=== PATIENT | female | born 1935 | race Caucasian/White ===

== ENCOUNTER 2016-06-18 22:33 | Emergency (ER) | payer BC, MEDICARE ==
[~2016-06-18] VITALS: Ht 165.1 cm; Wt 95.3 kg
[~2016-06-18 22:33] MED LIST: ATOR10TA60 PO; GABA600T2 PO; LEVO112T4 PO; LOSA100T6 PO; MELO-150 PO; METF500T4 PO; OXYB5TAB7 PO; TRIA1TAB3 PO
[2016-06-18] MEDS ORDERED: COCAINE 4% TOPICAL SOLUTION TP ONE (22:55)
[2016-06-18] MEDS ORDERED: AMOX1TAB58 PO (23:49)
[2016-06-18] MEDS ORDERED: HYDR-971 PO (23:49)
--- NOTE | 2016-06-18 23:50 | PHYS DOC ---
Past Medical History Past Medical History: Arthritis, Hypertension, Hypothyroid Past Surgical History: Cholecystectomy Additional Past Surgical Histo: breast biopsy, hernia repair Alcohol Use: None Drug Use: None Adult General Chief Complaint Chief Complaint: NOSEBLEED HPI HPI Patient is a 80 year old female who presents with complaint of nosebleed. Patient states her symptoms started approximately 2 hours prior to arrival. The patient started having some bleeding from the left nasal passage. Patient states that it was "a lot of blood." Patient denies any lightheadedness currently but states that she is having blood running down the back or throat. Patient is currently on baby aspirin but denies taking any other blood thinners. Patient denies any injuries to the nose prior to onset of bleeding. Patient has been holding pressure on her nose since onset but has not had any success in stopping the nosebleed. Review of Systems Review of Systems Constitutional: Denies fever or chills [] Eyes: Denies change in visual acuity, redness, or eye pain [] HENT: Epistaxis [] Respiratory: Denies cough or shortness of breath [] Cardiovascular: Denies chest pain or edema [] GI: Denies abdominal pain, nausea, vomiting, bloody stools or diarrhea [] : Denies dysuria or hematuria [] Musculoskeletal: Denies back pain or joint pain [] Integument: Denies rash or skin lesions [] Neurologic: Denies headache, focal weakness or sensory changes [] Current Medications Current Medications Current Medications Medications (Trade) Dose Ordered Sig/Preston Start Time Stop Time Status Last Admin Dose Admin Cocaine HCl 4 ml STK-MED ONCE 06/18/16 22:55 06/18/16 22:56 DC Allergies Allergies Allergies Coded Allergies Type Severity Reaction Last Updated Verified Iodinated Contrast Media - Oral and Allergy Unknown hives 10/29/14 No Physical Exam Physical Exam Constitutional: Alert, afebrile, active bleeding from nose, appears anxious. [] HENT: Normocephalic, atraumatic, bilateral external ears normal, visualized clot coming from nasopharynx protruding towards posterior oropharynx, no oral exudates, persistent oozing from left near with large amount of clot present, unable to visualize source of bleeding. [] Eyes: PERRLA, EOMI, conjunctiva normal, no discharge. [] Neck: Normal range of motion, no tenderness, supple, no stridor. [] Cardiovascular:Heart rate regular rhythm, no murmur [] Lungs & Thorax: Bilateral breath sounds clear to auscultation [] Abdomen: Bowel sounds normal, soft, no tenderness, no masses, no pulsatile masses. [] Skin: Warm, dry, no erythema, no rash. [] Extremities: No tenderness, no cyanosis, no clubbing, ROM intact, no edema. [] Neurologic: Alert and oriented X 3, normal motor function, normal sensory function, no focal deficits noted. [] Current Patient Data Vital Signs Vital Signs Date Time Temp Pulse Resp B/P Pulse Ox O2 Delivery O2 Flow Rate FiO2 06/18/16 22:35 98.2 81 20 157/67 95 Room Air 98.2 EKG EKG Not performed [] Radiology/Procedures Radiology/Procedures Not performed [] Course & Med Decision Making Course & Med Decision Making Pertinent Labs and Imaging studies reviewed. (See chart for details) Patient displayed severe bleeding which required placement of nasal packing for A knot. Patient had successful placement of a nasal pack as outlined in the procedure note. On reevaluation, the patient is in no acute distress and patient does not have any further active bleeding in her posterior pharynx. The patient will be referred to Dr. Kay of ENT for follow-up in 3-7 days. Patient will be treated with Augmentin for prophylaxis of sinus infection and hydrocodone for breakthrough pain. Advised return to emergency department for any worsening symptoms. Patient voiced understanding and in agreement with treatment plan. Dragon Disclaimer Dragon Disclaimer This electronic medical record was generated, in whole or in part, using a voice recognition dictation system. Departure Departure Impression: Primary Impression: Epistaxis Disposition: 01 HOME, SELF-CARE Condition: IMPROVED Referrals: ELDER PEARCE MD (PCP) Patient Instructions: Nosebleed Additional Instructions: You are being referred to Dr. Kay of ENT. It is recommended that you call her clinic at tomorrow to schedule a follow-up appointment. Be sure to let them know that you were seen here at [facility] and that the staff instructed you to call their office for follow-up. This may take place within the next 3-7 days unless instructed different by their office. You' ll be started on Augmentin to help prevent development of sinus infection while the nasal pack is in place. Return to the emergency department for any worsening symptoms. Scripts Hydrocodone/Apap 5-325 ([place] 5-325 Tablet)1 Each Tablet1 Tab PO Q4-6HRS PRN PAIN #20 TAB Ref 0 Prov:PRATIBHA SPAULDING MD 06/18/16 Amoxicillin/Potassium Clav (Augmentin 500-125 Tablet)1 Each Tablet1 Tab PO BID # 14 TAB Prov:PRATIBHA SPAULDING MD 06/18/16 PRATIBHA SPAULDING MD Jun 18, 2016 23:49
[2016-06-18 23:55] VITALS: BP 137/63
[2016-06-19] MEDS ORDERED: COCAINE 4% TOPICAL SOLUTION TP ONE (01:00)
[2016-07-02] MEDS ORDERED: ALEN70TA5 PO (13:01)
[2016-07-02] MEDS ORDERED: DULO30CA43 PO (13:01)
== END 2016-06-19 | disposition home or self-care (01) ==
LOC: ER 22:33
DX: R04.0 Epistaxis (principal); E03.9 Hypothyroidism, unspecified; I10 Essential (primary) hypertension; M19.90 Unspecified osteoarthritis, unspecified site; Z90.49 Acquired absence of other specified parts of digestive tract; Z91.041 Radiographic dye allergy status
CPT/HCPCS: 30901; 99283; 99284-25

== ENCOUNTER → 2016-07-02 | Outpatient (CLI) | payer MEDICARE ==
[2016-06-18 23:55] VITALS: BP 137/63
[~2016-07-02] MED LIST changes: +ALEN70TA5 PO; +AMOX1TAB58 PO; +DULO30CA43 PO; +HYDR-971 PO
[2016-07-02 13:58] LABS: BASO # 0.1 x10^3/uL (0.0-0.2); BASO % 1 % (0-3); EOS % 3 % (0-3); HEMATOCRIT 37.2 % (36.0-47.0); HEMOGLOBIN 12.4 g/dL (12.0-15.5); LYMPH % 28 % (24-48); MEAN CORPUSCULAR HEMOGLOBIN 32 pg (25-35); MEAN CORPUSCULAR HGB CONC 33 g/dL (31-37); MEAN CORPUSCULAR VOLUME 96 fL (79-100); MONO % 11 % (0-9); NEUT % 57 % (31-73); PLATELET COUNT 333 x10^3/uL (140-400); RED BLOOD COUNT 3.89 x10^6/uL (3.50-5.40); RED CELL DISTRIBUTION WIDTH 13.6 % (11.5-14.5); WHITE BLOOD COUNT 7.1 x10^3/uL (4.0-11.0)
--- NOTE | 2016-07-02 13:58 | EKG ---
[facility] [address] [place] [address] Test Date: 2016-07-02 Test Time: 14:05:17 Pat Name: SONU GARVIN Department: Room: Gender: F Car Hostler: : 1935 Requested By: PATRICA MONTELONGO Order Number: [id number] Reading MD: Harlan Saunders Measurements Intervals Dubois Rate: 59 P: 47 NM: 218 QRS: -16 QRSD: 86 T: 8 QT: 444 QTc: 444 Interpretive Statements SINUS RHYTHM ATRIAL PREMATURE COMPLEX(ES) LEFTWARD AXIS OTHERWISE NORMAL ECG RI6.01 No previous ECG available for comparison Electronically Signed On 07-03-2016 13:57:13 MILIEU COORDINATOR by Harlan Saunders
[2016-07-02 14:21] LABS: ALBUMIN 3.4 g/dL (3.4-5.0); CALCIUM 9.1 mg/dL (8.5-10.1); CREATININE 0.9 mg/dL (0.6-1.0); GFR 60.6; POTASSIUM 4.1 mmol/L (3.5-5.1); TOTAL BILIRUBIN 0.3 mg/dL (0.2-1.0); TOTAL PROTEIN 6.7 g/dL (6.4-8.2)
== END | disposition home or self-care (01) ==
LOC: SURGPAT 12:38
PROVIDERS: ATTEND Neurological Surgery
DX: Z01.818 Encounter for other preprocedural examination (principal); I10 Essential (primary) hypertension; M54.16 Radiculopathy, lumbar region; M48.06 Spinal stenosis, lumbar region
CPT/HCPCS: 36415; 80053; 83036; 85027; 85610; 85730; 87641; 93005

== ENCOUNTER 2016-07-08 07:04 | Observation (INO) | payer MEDICARE ==
[~2016-07-08] VITALS: Ht 162.6 cm; Wt 93.0 kg
[2016-07-08] VITALS (11 sets, daily range): BP systolic 100–130; BP diastolic 54–70
[~2016-07-08 07:04] MED LIST changes: +BACITRACIN 50,000 UNIT in IV NORMAL SALINE 1000ML BAG 1,000 ML IRR ONE; +FENTANYL PF 100 MCG/2 ML VIAL. IV PRN; +HYDROMORPHONE 2 MG/ML VIAL. IV PRN; +IV RINGERS,LACTATED 1000ML 1,000 ML IV SCH; +LIDOCAINE 1% 1 ML SYRINGE. ID PRN; +MORPHINE SULFATE 2 MG/ML DISP.SYRIN. IV PRN; +ONDANSETRON PF 4 MG/2 ML VIAL. IV PRN; +PROCHLORPERAZINE 10 MG/2 ML VIAL. IV PRN
[2016-07-08] MEDS ORDERED: LIDOCAINE 1%/EPI 1:100,000 20 ML VIAL. ONE (07:27)
[2016-07-08] MEDS ORDERED: BUPIVACAINE 0.5% 50 ML VIAL. ONE (07:27)
[2016-07-08] MEDS ORDERED: THROMBIN 20,000 UNIT SPRAY.SYRN KIT TP ONE (07:27)
[2016-07-08] MEDS ORDERED: GELATIN SPONGE SIZE 100. ONE (07:27)
[2016-07-08] MEDS ORDERED: REMIFENTANIL 2 MG VIAL. IV ONE (07:56)
[2016-07-08] MEDS ORDERED: FENTANYL PF 100 MCG/2 ML VIAL. ONE (07:56)
[2016-07-08] MEDS ORDERED: GLYCOPYRROLATE 1 MG/5 ML VIAL. ONE (07:57)
[2016-07-08] MEDS ORDERED: CEFAZOLIN 1GM IVPB FOR OMNI 50 ML IV PRN (08:00)
[2016-07-08] MEDS ORDERED: PROPOFOL 20 ML IV ONE (08:01)
[2016-07-08] MEDS ORDERED: ONDANSETRON PF 4 MG/2 ML VIAL. ONE (08:04)
[2016-07-08] MEDS ORDERED: LIDOCAINE 2% 100 MG/5 ML DISP.SYRIN. ONE (08:04)
[2016-07-08] MEDS ORDERED: DEXAMETHASONE SOD PHOS 20 MG/5 ML VIAL. ONE (08:05)
[2016-07-08] MEDS ORDERED: PROPOFOL 50 ML IV ONE ×2 (08:06→09:28)
[2016-07-08] MEDS ORDERED: ROCURONIUM 50 MG/5 ML VIAL. ONE (08:08)
[2016-07-08] MEDS ORDERED: FAMOTIDINE 20 MG/2 ML VIAL ONE (08:09)
[2016-07-08] MEDS ORDERED: MIDAZOLAM HCL 2 MG/2 ML VIAL. ONE (08:30)
--- NOTE | 2016-07-08 11:09 | PDOC ---
BRIEF OPERATIVE NOTE Date: Jul 08, 2016 Pre-Op Diagnosis lumbar stenosis, lumbar spondylosis, lumbar radiculopathy Post-Op Diagnosis same Procedure Performed bilateral laminectomy L4-5 Surgeon Nba Carbon Brush Maker none Anesthesia Type: General Blood Loss 25mL Specimens Obtained decompression Findings prominent stenosis largely related to underlying ligamentous hypertrophy Complications none apparent Additional Remarks neuromonitoring improved compared to baseline upon completion of procedure PATRICA MONTELONGO MD Jul 08, 2016 11:09
[2016-07-08] MEDS ORDERED: DIPHENHYDRAMINE HCL 25 MG CAPSULE PO PRN (11:15)
[2016-07-08] MEDS ORDERED: ZOLPIDEM 5 MG TABLET. PO PRN (11:15)
[2016-07-08] MEDS ORDERED: OXYCODONE/APAP 5/325 TABLET. PO PRN (11:15)
[2016-07-08] MEDS ORDERED: 0.9 % SODIUM CHLORIDE 10 ML DISP.SYRIN. IV PRN (11:15)
[2016-07-08] MEDS ORDERED: CALCIUM CARBONATE 500 MG TAB.CHEW PO PRN (11:15)
[2016-07-08] MEDS ORDERED: MAG HYDROX/ALUMINUM HYD/SIMETH 30 ML ORAL.SUSP PO PRN (11:15)
[2016-07-08] MEDS ORDERED: ONDANSETRON PF 4 MG/2 ML VIAL. IV PRN (11:15)
[2016-07-08] MEDS ORDERED: ACETAMINOPHEN 325 MG TABLET. PO PRN (11:15)
[2016-07-08] MEDS ORDERED: DIPHENHYDRAMINE 50 MG/ML VIAL IV PRN (11:15)
[2016-07-08] MEDS ORDERED: NALOXONE 0.4 MG/ML VIAL. IV PRN (11:15)
[2016-07-08] MEDS: FENTANYL PF 100 MCG/2 ML VIAL. IV PRN ×2 (11:21→11:28)
[2016-07-08] MEDS ORDERED: FENTANYL PF 100 MCG/2 ML VIAL. IV PRN ×2 (11:45)
[2016-07-08] MEDS: GABAPENTIN 300 MG CAPSULE. PO SCH ×2 (13:13→20:53)
[2016-07-08] MEDS: METFORMIN 500 MG TABLET. PO SCH (13:13)
[2016-07-08] MEDS: METHOCARBAMOL 750 MG TABLET PO SCH ×2 (13:14→20:53)
--- NOTE | 2016-07-08 15:40 | OP ---
DATE OF SURGERY: 07/08/2016 SURGEON: Dr. Chris Montelongo. UNDERLINER: None. PREOPERATIVE DIAGNOSES: Lumbar spondylosis with lumbar stenosis and lumbar radiculopathy. POSTOPERATIVE DIAGNOSES: Lumbar spondylosis with lumbar stenosis and lumbar radiculopathy. PROCEDURE: Bilateral laminectomy of lumbar 4-5 with intraoperative neuro-monitoring and intraoperative use of microscope. ANESTHESIA: General. COMPLICATIONS: None intra-procedurally. INDICATIONS FOR THE PROCEDURE: The patient is a 80-year-old female with significant lower extremity pain localized with prominent stenosis at lumbar 4-5. She has been refractory to nonsurgical treatments. Please refer to the patient chart for additional details. DESCRIPTION OF PROCEDURE: After informed consent was obtained, the patient was brought into the operating room. She was placed under general anesthesia, was placed in the prone position on the Noé frame. All pressure points were checked and padded appropriately. Neuro monitoring was instituted and baseline potentials were obtained. The lumbar region was prepped and draped in the usual sterile fashion. Fluoroscopy was utilized to localize an appropriate incision location, and a vertical incision centered over the region of lumbar 4-5 was made with a 10-blade scalpel. Monopolar electrocautery was utilized to dissect the avascular midline to the spinous processes of lumbar 4-5 and bilaterally across the lamina at this location. Level was again verified with fluoroscopy prior to the initiation of decompression. A bilateral laminectomy was performed over the inferior aspect of lumbar 4 and slightly in the superior aspect of lumbar 5 over the region with most prominent stenosis at this location. This was performed with a Leksell as well as a pneumatic drill. A Kerrison rongeur was also utilized to remove the bony material. The underlying ligament was gently dissected free from the thecal sac with a Harsha and nerve hook and removed with a pituitary rongeur and a Kerrison rongeur. Prominent stenosis was noted over this region, particularly centrally and in the bilateral lateral recesses largely due to degenerative changes such as ligamentous hypertrophy. Once the bilateral laminectomy was performed, decompression was verified with direct visualization as well as gentle palpation with a Tioga and a Lopez ball. Neuro monitoring was reportedly improved compared to baseline upon completion of the decompression as well. Upon completion of this, pristine hemostasis was achieved with FloSeal, cottonoids, irrigation, and some use of bipolar electrocautery. The wound was generously irrigated with antibiotic irrigation prior to final closure. Muscles and fascia were then reapproximated with 0 Vicryl in a simple interrupted fashion. Subcutaneous tissues were reapproximated with 2-0 Vicryl in interrupted inverted fashion, and the skin was reapproximated with 4-0 Vicryl in a running subcuticular fashion. Mastisol and Steri-Strips were applied, and the wound was dressed with Telfa and Tegaderm. At the end of procedure, all needle and sponge counts were correct x 2. The patient was extubated in the operating room and taken to recovery in stable condition. There were no intra-procedural complications apparent. CHRIS MONTELONGO MD DR: EL/herman JOB#: [id number] / [id number]
[2016-07-08] MEDS: CALCIUM CARB/VIT D3 500/200 TABLET PO SCH (17:43)
[2016-07-08] MEDS: FERROUS SULFATE 325 MG TABLET PO SCH (17:43)
[2016-07-08] MEDS: SENNOSIDES/DOCUSATE 8.6/50MG TABLET. PO SCH (20:53)
[2016-07-08] MEDS: DULOXETINE HCL 30 MG CAPSULE.DR. PO SCH (20:53)
[2016-07-08] MEDS: DOCUSATE SODIUM 100 MG CAPSULE PO SCH (20:53)
[2016-07-08] MEDS: NEOMY/BACITR/POLYMYXIN OINT PACKET. TP PRN (20:54)
[2016-07-08] MEDS ORDERED: ATORVASTATIN CALCIUM 10 MG TABLET. PO SCH (21:00)
[2016-07-08] MEDS: OXYCODONE/APAP 5/325 TABLET. PO PRN (22:47)
[2016-07-08] MEDS: OXYBUTYNIN CHLORIDE 5 MG TABLET PO SCH (22:55)
[2016-07-09 02:11] VITALS: BP 95/47
[2016-07-09] MEDS: OXYCODONE/APAP 5/325 TABLET. PO PRN ×2 (05:33→10:20)
[2016-07-09 06:32] VITALS: BP 121/56
[2016-07-09] MEDS ORDERED: LEVOTHYROXINE 112 MCG TABLET PO SCH (07:00)
[2016-07-09] MEDS ORDERED: METFORMIN 500 MG TABLET. PO SCH (07:30)
[2016-07-09] MEDS: METFORMIN 500 MG TABLET. PO SCH (07:44)
[2016-07-09] MEDS: GABAPENTIN 300 MG CAPSULE. PO SCH (07:44)
[2016-07-09] MEDS: METHOCARBAMOL 750 MG TABLET PO SCH (07:44)
[2016-07-09] MEDS: FERROUS SULFATE 325 MG TABLET PO SCH (07:44)
[2016-07-09] MEDS: CALCIUM CARB/VIT D3 500/200 TABLET PO SCH (07:44)
[2016-07-09] MEDS: OXYBUTYNIN CHLORIDE 5 MG TABLET PO SCH (07:44)
[2016-07-09] MEDS: SENNOSIDES/DOCUSATE 8.6/50MG TABLET. PO SCH (07:44)
[2016-07-09] MEDS: DOCUSATE SODIUM 100 MG CAPSULE PO SCH (07:44)
[2016-07-09] MEDS: DULOXETINE HCL 30 MG CAPSULE.DR. PO SCH (07:45)
[2016-07-09] MEDS: NEOMY/BACITR/POLYMYXIN OINT PACKET. TP PRN (07:50)
[2016-07-09 07:51] VITALS: BP 124/54
[2016-07-09] MEDS ORDERED: TRIAMTERENE/HCTZ 37.5/25MG TABLET. PO SCH (09:00)
[2016-07-09] MEDS ORDERED: MELOXICAM 7.5 MG TABLET PO SCH (09:00)
[2016-07-09] MEDS ORDERED: MULTIVITAMIN with MINERAL TABLET. PO SCH (09:00)
[2016-07-09] MEDS ORDERED: LOSARTAN POTASSIUM 50 MG TABLET. PO SCH (09:00)
--- NOTE | 2016-07-09 09:02 | PDOC ---
SUBJECTIVE Subjective Reports resolution of leg pain. Incisional pain controlled. Has been ambulating without significant problem. OBJECTIVE Vital Signs Vital Signs Date Time Temp Pulse Resp B/P Pulse Ox O2 Delivery O2 Flow Rate FiO2 07/09/16 08:03 52 124/54 07/09/16 08:00 Room Air 07/09/16 07:51 52 16 124/54 Room Air 07/09/16 06:36 20 97 Room Air 07/09/16 06:32 97.7 54 18 121/56 93 Room Air 97.7 07/09/16 05:33 20 07/09/16 02:11 98.1 61 20 95/47 93 Room Air 98.1 07/08/16 22:51 98.3 62 18 114/57 95 Room Air 98.3 07/08/16 22:47 20 Room Air 07/08/16 19:00 58 20 94 Room Air 07/08/16 17:54 97.6 56 16 118/70 95 Room Air 97.6 07/08/16 16:00 98.0 54 20 124/63 95 Room Air 98.0 07/08/16 15:00 97.2 57 18 117/57 97 Nasal Cannula 2.0 97.2 07/08/16 14:30 18 122/63 07/08/16 14:00 97.5 60 119/60 97 Nasal Cannula 2.0 97.5 07/08/16 13:30 55 20 126/54 07/08/16 13:00 Room Air 2.0 07/08/16 13:00 97.3 57 18 125/57 98 Nasal Cannula 2.0 97.3 07/08/16 12:45 130/55 07/08/16 12:30 100/57 07/08/16 12:15 97.5 56 18 118/64 94 Nasal Cannula 2.0 97.5 07/08/16 11:48 64 18 121/58 97 Room Air 07/08/16 11:33 66 18 128/63 98 Nasal Cannula 2 07/08/16 11:28 93 Room Air 07/08/16 11:21 99 Room Air 07/08/16 11:18 71 16 120/57 93 Room Air 07/08/16 11:03 98.0 84 14 128/47 99 Simple Mask 10 98.0 I & O Intake and Output 07/09/16 07:00 Intake Total 2680 ml Output Total 2250 ml Balance 430 ml Intake Oral 2030 ml IV Total 650 ml Output Urine Total 2250 ml # Voids 2 PHYSICAL EXAM Physical Exam AAOX4, NAD, BOONE 5/5, sensation intact LT, dressing with small ss stain, flat and dry ASSESSMENT/PLAN Assessment/Plan POD 1 lumbar laminectomy -overall, appears to be recovering well -PT to see -standard post-op restrictions -d/c home today -f/u with NS 2 weeks [phone] Problems: COMMENT Lab Laboratory Tests Test 07/08/16 11:17 07/08/16 16:35 07/09/16 06:26 Glucose (Fingerstick) 103mg/dL (70-99) 137mg/dL (70-99) 91mg/dL (70-99) PATRICA MONTELONGO MD Jul 09, 2016 09:02
[2016-07-09] MEDS ORDERED: METH750T2 PO (09:09)
[2016-07-09] MEDS ORDERED: SENN1TAB99 PO (09:10)
[2016-07-09] MEDS ORDERED: OXYC-323 PO (09:11)
[2016-07-09 11:12] VITALS: BP 119/60
--- NOTE | 2016-07-09 15:09 | PATHOLOGY ---
PATHOLOGY REPORT * * * * * * * * FINAL DIAGNOSIS: Segments of fibrocartilaginous, fibroadipose, and skeletal muscle tissue and bone, lumbar decompression: - Degenerative changes of fibrocartilaginous tissue. COMMENT: There is no evidence of an acute inflammatory process or malignancy. (JPM:csd; d/t: 07/09/2016) REPORT ELECTRONICALLY SIGNED BY: Wilmar David M.D. DATE/TIME: 07/09/2016 15:08 * * * * * * * * GROSS PATHOLOGY: Received in formalin labeled "Ashlie Mosher, lumbar decompression" are multiple segments of finnegan, rubbery, and gritty tissue admixed with bone. The specimen measures 5.2 x 4.8 x 1.4 cm in aggregate dimensions. The tissue is submitted representatively in cassette A1, following decalcification. (CAA; 07/08/2016) INITIAL CPT CODE(S): A; 48148, 74439 Professional services performed [place] [facility] [place] [address] Technical services performed by [facility] at [address] [place] [address]. SPECIMEN(S) RECEIVED: A.Lumbar decompression CLINICAL HISTORY: Lumbar stenosis, radiculopathy PATIENT: ASHLIE MOSHER O /AGE: 3 1935 (Age: 80) PATIENT #: [id number] ALT CASE #: SPECIMEN COLLECTION DATE: 07/08/2016 SPECIMEN RECEIVED DATE: 07/08/2016 [facility] - [address] [place] [address] - PHONE: [phone] * * * END OF REPORT * * *
[2016-07-15] MEDS ORDERED: NON FORMULARY ITEM (Alendronate Sodium 70 MG) PO SCH (09:00)
== END 2016-07-09 11:33 | disposition home or self-care (01) ==
LOC: SURG 07:04 → 4 SOUTHEST 11:19
PROVIDERS: ADMIT Neurological Surgery; ATTEND Neurological Surgery
DX: M47.26 Other spondylosis with radiculopathy, lumbar region (principal); M48.06 Spinal stenosis, lumbar region
CPT/HCPCS: 63030; 76000; 82947; 97161; 97165; 97535; G0378; G0379; G8978; G8979; G8980; J0690; J1100; J2250; J2704; J3010; J3490; J7030; S0028; 88304; 88311; J0780; J2405

== ENCOUNTER → 2017-04-10 | Outpatient (CLI) | payer BC ==
[~2017-04-10] MED LIST changes: -BACITRACIN 50,000 UNIT in IV NORMAL SALINE 1000ML BAG 1,000 ML IRR ONE; -FENTANYL PF 100 MCG/2 ML VIAL. IV PRN; -HYDROMORPHONE 2 MG/ML VIAL. IV PRN; -IV RINGERS,LACTATED 1000ML 1,000 ML IV SCH; -LIDOCAINE 1% 1 ML SYRINGE. ID PRN; -MELO-150 PO; +MELO15TA23 PO; +METH750T2 PO; -MORPHINE SULFATE 2 MG/ML DISP.SYRIN. IV PRN; -ONDANSETRON PF 4 MG/2 ML VIAL. IV PRN; +OXYC-323 PO; -PROCHLORPERAZINE 10 MG/2 ML VIAL. IV PRN; +SENN1TAB99 PO
--- NOTE | 2017-04-10 10:01 | RAD ---
DATE: 04/10/2017 EXAM: DIGITAL SCREEN BILAT W/CAD HISTORY: Routine screening COMPARISON: 06/10/2015 This study was interpreted with the benefit of Computerized Aided Detection (CAD). The breast parenchyma is primarily fatty replaced. Breast parenchyma level density A. FINDINGS: No new or enlarging breast densities are seen. Scattered benign type calcifications are present. No suspicious microcalcifications have developed. IMPRESSION: Stable mammograms without evidence of malignancy. BI-RADS CATEGORY: 2 BENIGN FINDING(S) RECOMMENDED FOLLOW-UP: 12M 12 MONTH FOLLOW-UP PQRS compliance statement: Patient information was entered into a reminder system with a target due date for the next mammogram. Mammography is a sensitive method for finding small breast cancers, but it does not detect them all and is not a substitute for careful clinical examination. A negative mammogram does not negate a clinically suspicious finding and should not result in delay in biopsying a clinically suspicious abnormality. "Our facility is accredited by the [employer] Mammography Program."
== END | disposition home or self-care (01) ==
LOC: MAMMO 09:24
PROVIDERS: ATTEND Internal Medicine
DX: Z12.31 Encounter for screening mammogram for malignant neoplasm of breast (principal)
CPT/HCPCS: G0202; 77067

== ENCOUNTER → 2018-04-12 | Outpatient (CLI) | payer BC ==
[2017-09-25 15:26] VITALS: BP 139/39
[~2018-04-12] MED LIST changes: +HYDR-3164 PO; -HYDR-971 PO; +LOSA100T14 PO; -LOSA100T6 PO; +METF500T16 PO; -METF500T4 PO; -OXYC-323 PO; +OXYC1TAB15 PO
--- NOTE | 2018-04-12 12:40 | RAD ---
DATE: April 12, 2018 EXAM: MAMMO MEHRDAD SCREENING BILATERAL HISTORY: Screening study COMPARISON: 2015 and 2017 This study was interpreted with the benefit of Computerized Aided Detection (CAD). 2-D digital mammographic views of both breasts were performed in the CC and MLO projections. 3-D digital tomosynthesis images of both breasts were performed in the CC and MLO projections and reviewed on a computer workstation. FINDINGS: Breast Density: FATTY The breast parenchyma is primarily fatty replaced. Breast parenchyma level density A.. There are no dominant suspicious masses, suspicious microcalcifications or evidence of architectural distortion. IMPRESSION: No mammographic indicators for malignancy. BI-RADS CATEGORY: 1 NEGATIVE RECOMMENDED FOLLOW-UP: 12M 12 MONTH FOLLOW-UP PQRS compliance statement: Patient information was entered into a reminder system with a target due date April 13, 2019 for the next mammogram. Mammography is a sensitive method for finding small breast cancers, but it does not detect them all and is not a substitute for careful clinical examination. A negative mammogram does not negate a clinically suspicious finding and should not result in delay in biopsying a clinically suspicious abnormality. "Our facility is accredited by the [employer] Mammography Program." The patient's breast density may affect the ability of mammography to detect breast cancer. There are 4 categories of breast density, A, B, C and D. Breast density A means that most of the breast tissue is replaced with adipose tissue and therefore is not dense. Breast density B means that the breast tissue is mildly dense and scattered. Breast density C means that the breast tissue is heterogeneously dense. Breast density D means that the breast tissue is very dense. Breast densities especially C and D may decrease the sensitivity of mammography to detect breast cancer. Therefore, the patient may benefit from 3-D breast mammography (3D breast tomography) as a part of their screening mammogram. Insurance may or may not pay for this additional imaging. The patient's breast density based on today's mammogram is category A.
== END | disposition home or self-care (01) ==
LOC: MAMMO 07:48
PROVIDERS: ATTEND Physician Assistant Surgical
DX: Z12.31 Encounter for screening mammogram for malignant neoplasm of breast (principal)
CPT/HCPCS: 77063; 77067

== ENCOUNTER 2018-09-01 06:55 | Day surgery (SDC) | payer BC ==
[~2018-09-01] VITALS: Ht 163.8 cm; Wt 98.0 kg
[~2018-09-01 06:55] MED LIST changes: -ALEN70TA5 PO; +ALEN70TA6 PO; +ASPI81TA50 PO; +BUPIVACAINE MPF 0.5% 30 ML VIAL. ONE; +CHOL2000 PO; -GABA600T2 PO; +GABA600T7 PO; +HYDR-2765 PO; +LIDOCAINE 1% 20 ML VIAL. ONE; +MIRA50TA PO
[2018-09-01] MEDS ORDERED: PROCHLORPERAZINE 10 MG/2 ML VIAL. IV PRN (07:00)
[2018-09-01] MEDS ORDERED: HYDROmorphone 2 MG/ML VIAL IV PRN (07:00)
[2018-09-01] MEDS ORDERED: IV RINGERS,LACTATED 1000ML 1,000 ML IV SCH (07:00)
[2018-09-01] MEDS ORDERED: ceFAZolin 2GM PREMIX 2 GM/50 ML BAG IV ONE (07:00)
[2018-09-01] MEDS ORDERED: ONDANSETRON PF 4 MG/2 ML VIAL. IV PRN (07:00)
[2018-09-01] MEDS ORDERED: MORPHINE SULFATE 2 MG/ML VIAL. IV PRN (07:00)
[2018-09-01] MEDS ORDERED: fentaNYL PF VIAL 100 MCG/2 ML VIAL IV PRN ×2 (07:00)
[2018-09-01] MEDS ORDERED: ACETAMINOPHEN 500 MG TABLET PO ONE (07:30)
[2018-09-01] MEDS ORDERED: SCOPOLAMINE 1.5MG PATCH. TD ONE (07:30)
[2018-09-01] MEDS ORDERED: LIDOCAINE 2% PF 5 ML VIAL. ONE (07:40)
[2018-09-01] MEDS ORDERED: PROPOFOL 20 ML IV ONE (07:40)
[2018-09-01] MEDS ORDERED: KETOROLAC 30 MG/ML INJ FOR OR. INJ ONE (08:06)
--- NOTE | 2018-09-01 08:12 | DISCH ---
DISCHARGE INSTRUCTIONS Condition on Discharge Condition on Discharge: Stable Activity After Discharge Activity Instructions for Disc: Activity as tolerated Other activity instructions: wiggle fingers Bathing Instructions: Shower-keep dressing dry, No Tub Bath until see Lifting Instructions after Dis: No heavy lifting Exercise Instruction after Dis: Progress as tolerated Driving Instructions after Dis: Do not drive today Weight Bearing Status after Di: As tolerated Diet after Discharge Diet after Discharge: Regular Diet Texture: Regular Liquid Texture: Thin Liquid Swallowing Supervision: None needed Wound Incision Care Wound/Incision Care: Ice to area for comfort, Keep wound/cast CDI, Change dressing, Other, see below Other wound/incision instructi: ok to change dressing in 2 days Wound Care Equipment: Dressings Checks after Discharge Checks after discharge: Check blood press - daily, Check blood sugar, ac/hs, Check your Temp as needed Contacting the DRAdam after DC Call your doctor for: Concerns you may have Follow-Up Follow up with: Rahul in 2 wks Treatment/Equipment after DC Adaptive Equipment Issued: None TAQUERIA HAIDER II, MD September 01, 2018 08:12
[2018-09-01] MEDS ORDERED: SCOPOLAMINE 1.5MG PATCH. TD SCH (09:00)
--- NOTE | 2018-09-01 09:03 | PDOC4 ---
Operative Note Operative Note Date of procedure: 09/01/2018 Surgeon: Sadi Haider Preoperative diagnosis: #1 left carpal tunnel syndrome #2 left trigger thumb Postoperative diagnosis: Same Procedures performed: #1 open left carpal tunnel release #2 open left trigger thumb release Anesthesia: Nela block block with sedation Complications: None Tourniquet time: Less than 30 minutes Blood loss: 5 mL Findings: She had some increased vasculature noted in her median nerve directly underneath the transverse carpal ligament Reason for procedure: Patient is a very pleasant 83-year-old female with ewa ateral carpal tunnel syndrome, consistent with her clinical and EMG diagnosis. She had tried conservative therapies including anti-inflammatories, nighttime splinting, she wished for something more definitive Be done and therefore we discussed the risks, benefits, and alternatives to the above surgery and she wished to proceed. The painful catching at her thumb was also bothersome and she requested surgery for this as well considering she was going to undergo surgery for her carpal tunnel, I felt this was very reasonable. Especially, considering her history of diabetes and a lower efficacy of injections for trigger finger. Description of procedure: Patient was greeted in the preoperative area by myself for the after this, I began the procedure by palpating for her nodule in the flexor tendon at the base of her thumb and incised skin overlying this. Bipolar cautery was used for hemostasis. I used a mosquito limp to spread down to identify the A1 enrique and release this with a tenotomy. I delivered delivered t he flexor tendon from the incision to open chart accomplish a complete release. I then irrigated this incision out and closed skin with simple interrupted 3-0 nylon. After this, I directed my attention to the carpal tunnel portion of the procedure and made an incision longitudinally in her palm distal to her distal wrist crease. Skin was incised with the scalpel, I used a mosquito to spread down to palmar fascia and placed my self-retaining retractor. Bipolar cautery was again used for hemostasis as needed. I incised the fascia in line with the skin incision and repositioned my retractor deeper. Identified the transverse carpal ligament and release this sharply with a scalpel. I then placed a Ragnell retractor at the distal portion of the incision, spread above and below the small remaining portion of the transverse carpal ligament and release this. I then repositioned the Ragnell retractor and the proximal portion of the incision, spread above and below the distal antebrachial fascia and release this and an ulnar directed fashion. I used the tip of the tenotomy scissors to palpate along the course of the nerve to help ensure that accomplished a complete release and I was confident I had. I then irrigated this incision out and closed skin with a combination of simple interrupted and mattress 3-0 nylon. I then injected a local anesthetic mixture into the bryan-incisional areas, ensuring extravascular placement. After this, the arm and hand were cleansed and dried and a sterile bulky soft dressing was applied. All counts were correct 2 prior to wound closure. No competitions. She tolerated surgery well. At the conclusion, she was transferred gently supine to the recovery room cart and taken to PACU in a stable and extubated condition. Postoperative plan is to disc harge her home. Active range of motion at her digits was encouraged. Wound care was discussed with her and given and written form as well as with family. I will see her back in 2 weeks, sooner should a problem arise SADI HAIDER II, MD September 01, 2018 09:03
[2018-09-01 09:42] VITALS: BP 104/68
== END 2018-09-01 09:42 | disposition home or self-care (01) ==
LOC: SURG 06:55
PROVIDERS: ATTEND Orthopaedic Surgery Sports Medicine
DX: G56.02 Carpal tunnel syndrome, left upper limb (principal); M65.312 Trigger thumb, left thumb; I10 Essential (primary) hypertension; E03.9 Hypothyroidism, unspecified; E11.9 Type 2 diabetes mellitus without complications; E78.5 Hyperlipidemia, unspecified; Z86.73 Personal history of transient ischemic attack (TIA), and cerebral infarction without residual deficits; Z91.041 Radiographic dye allergy status; Z90.49 Acquired absence of other specified parts of digestive tract; Z98.890 Other specified postprocedural states; Z72.89 Other problems related to lifestyle; Z79.84 Long term (current) use of oral hypoglycemic drugs
CPT/HCPCS: 26055; 64721; 82962; J0696; J1885; J2001; J2704; J3490

== ENCOUNTER → 2018-10-11 | Outpatient (CLI) | payer BC ==
[~2018-10-11] MED LIST changes: -BUPIVACAINE MPF 0.5% 30 ML VIAL. ONE; -LIDOCAINE 1% 20 ML VIAL. ONE
--- NOTE | 2018-10-11 15:30 | KCIC ---
MRI of the lumbar spine without contrast 10/11/2018 CLINICAL HISTORY: Low back pain which radiates down the right leg. History of previous lumbar spine surgery. TECHNIQUE: Unenhanced T1-weighted and T2-weighted sagittal and axial and inversion recovery sagittal images of the lumbar spine were obtained. FINDINGS: Comparison study is dated 07/04/2016. For the purposes of this dictation 5 lumbar vertebrae have been assumed. The last 5 lumbar-appearing disc space will be referred to as L5-S1. A hypoplastic disc is seen at S1-2. Mild to moderate S-shaped curvature of the thoracolumbar spine is seen. Degenerative signal changes are seen involving all of the disks of the lumbar spine. Degenerative signal changes are seen within the marrow surrounding these discs. The conus medullaris is normal morphology, position, and signal characteristics. Rounded high signal intensity lesions are seen involving the superior pole of the left kidney. These measure 8 mm to 1.4 cm in size. They likely represent cysts. At the L1-2 and L2-3 disc spaces there are mild to moderate generalized disc bulges. Degenerative changes are seen involving the facet joints bilaterally. There is mild to moderate ligamentum flavum hypertrophy bilaterally. These findings do not result in significant central spinal canal or neural foraminal stenosis. At the L3-4 disc space there is a moderate generalized disc bulge. This is eccentric to the right. Degenerative changes are seen involving the facet joints bilaterally. There is moderate ligamentum flavum hypertrophy bilaterally. There is prominence of the posterior epidural fat. These findings when combined result in severe central spinal canal stenosis. Mild to moderate right greater than left neural foraminal stenosis is seen. At the L4-5 disc space there is a moderate generalized disc bulge. Superimposed on this disc bulge is a central/right paracentral focal disc protrusion this measures 4 mm in AP diameter. The patient is post laminectomy. Degenerative changes are seen involving the facet joints bilaterally. These findings do not result in significant central spinal canal stenosis. Mild to moderate bilateral neural foraminal stenosis is seen. At the L5-S1 disc space there is a mild generalized disc bulge. Degenerative changes are seen involving the facet joints bilaterally. There is moderate ligamentum flavum hypertrophy bilaterally. These findings result in mild central spinal canal stenosis. No neural foraminal stenosis is seen. Since the previous examination there has been no significant interval change. IMPRESSION: 1. Post laminectomy at L4-5. 2. The changes of degenerative disc disease are seen involving the lumbar spine. These findings result in severe central spinal canal stenosis at L3-4 and mild central spinal canal stenosis at L5-S1. Mild to moderate right greater than left neural foraminal stenosis is seen at L3-4. Mild to moderate bilateral neural foraminal stenosis is seen at L4-5. Electronically signed by: Nic Sahu MD (10/11/2018 3:28 PM) [id number]
== END | disposition home or self-care (01) ==
LOC: KCIC MRI 10:07
PROVIDERS: ATTEND Physician Assistant Surgical
DX: M51.36 Other intervertebral disc degeneration, lumbar region (principal); M48.061 Spinal stenosis, lumbar region without neurogenic claudication; M47.817 Spondylosis without myelopathy or radiculopathy, lumbosacral region; M89.38 Hypertrophy of bone, other site; M51.26 Other intervertebral disc displacement, lumbar region
CPT/HCPCS: 72148

== ENCOUNTER → 2018-10-26 | Outpatient (CLI) | payer BC ==
[~2018-10-26] MED LIST changes: +GABA300C18 PO; +methylPREDNISolone ACETATE 40 MG/ML VIAL. ONE; +methylPREDNISolone ACETATE 80 MG/ML VIAL. ONE
--- NOTE | 2018-10-26 11:49 | PAIN ---
DATE OF SERVICE: 10/26/2018 PROGRESS NOTE FOR PAIN CLINIC DIAGNOSES: Lumbar radiculopathy with lumbar degenerative disk disease, lumbar spinal stenosis and post-lumbar laminectomy syndrome. HISTORY OF PRESENT ILLNESS: The patient is an 83-year-old female who returns for followup status post previous lumbar epidural steroid injection, last seen in 2015. The patient had undergone lumbar laminectomy in the L4-L5 level with diskectomy shortly after that time and returns today with new MRI scan dated 10/11/2018, showing some degenerative changes in the lumbar spine; most severe spinal canal stenosis at L3-L4 with mild central spinal canal stenosis at L5-S1; [id number], right greater than left, neural foraminal stenosis seen at L3-L4 with [id number] bilateral neural foraminal stenosis at L4-L5. The patient reports still significant pain, which was better after her surgery, but is returning now in the low back and the right leg, mostly in the posterior lateral anterior thigh, anterior medial thigh and medial knee. It is like grabbing soreness in the medial anterior thigh on the right side. The patient reports it is cramping and stabbing, radiating and becoming more constant with walking and standing. It has been getting worse for about the past 4-5 months. The patient reports it is a 10 on the scale of 10 at its worst, 8 on average, 6 at its least and it is a 6 today. The patient reports no new motor or sensory deficits, no new bowel or bladder incontinence. She stays very active. She has been doing a lot of walking, activity around the house as well as traveling some with her family and this is beginning to limit her ability to do these things enjoyably. The patient reports she is sleeping fairly well at night and it does not awaken her every night, but does if she lays on her right side more than the left. PHYSICAL EXAMINATION: VITAL SIGNS: Today, the patient's blood pressure is 117/67, pulse 67, respirations 18 and temperature is 98.9 degrees Fahrenheit. Height is 5 feet 4 inches, weight is 213 pounds. GENERAL: The patient is awake, alert, oriented, appropriate, very pleasant demeanor. HEENT EXAMINATION: Shows normocephalic, atraumatic. Extraocular muscles are intact and symmetrical. Oral cavity, mucous membranes are moist and pink. Dentition is intact. NECK: Shows anterior throat supple, without palpable lymphadenopathy noted. Swallow reflex is symmetrical. CHEST: Shows normal on inspection. Breath sounds are clear to auscultation bilaterally. HEART: Shows S1, S2 clear. No murmurs auscultated. ABDOMEN: Soft, nontender and nondistended. No palpable organomegaly is noted. No rebound or guarding demonstrated. BACK: Shows spine grossly in the midline. Normal-appearing thoracic kyphosis and lumbar lordotic curvature is slightly flattened with well-healed surgical scar noted. Lumbar paraspinous muscle shows symmetrical on inspection. With palpation, it shows some moderate tenderness diffusely in the middle and lower distribution of the paraspinous muscles, but only diffusely, without radiation, without atrophy, hypertrophy and without asymmetry. EXTREMITIES: Lower extremities show deep tendon reflexes at 1+ in the patellar and tendo calcaneus tendons. Motor exam is strong with 5/5 dorsiflexion, extension, quadriceps and hamstring flexion and equal. Peripheral pulses are 1+. No peripheral edema is noted. Options were discussed with the patient. The patient's old chart was reviewed as was her current medication regimen updated. Current review of systems updated today as well. We will proceed with a lumbar epidural steroid injection today with fluoroscopic guidance. Risks were again discussed including, but not limited to bleeding, infection, possibility of epidural hematoma, subsequent neurologic compromise, dural puncture, headaches, spinal cord and/or nerve damage, side effects of steroid medication and poor results regarding pain control. The patient understands and wishes to proceed. The patient will return to the clinic in approximately 2 weeks for followup. She was counseled on her return appointment, activity level and side effects to be aware of. DIAGNOSES: Lumbar radiculopathy with lumbar degenerative disk disease, lumbar spinal stenosis and post-lumbar laminectomy syndrome. PROCEDURE: Lumbar epidural steroid injection in translaminar approach at L3-L4 level using C-arm fluoroscopic guidance under sterile prep and drape using local anesthetic. MEDICATION INJECTED: A total of 120 mg Depo-Medrol plus 10 mL of preservative-free normal saline. CONDITION AT DISCHARGE: Stable. The patient did have a mild headache following the procedure, but this resolved after approximately 15 minutes and was discharged in good stable condition under her own power, accompanied by her spouse. TRISHA HURT MD DR: RAJWINDER/herman JOB#: [id number] / [id number]
== END ==
LOC: PNCL 13:23
PROVIDERS: ATTEND Anesthesiology
DX: M51.16 Intervertebral disc disorders with radiculopathy, lumbar region (principal); M48.061 Spinal stenosis, lumbar region without neurogenic claudication; M96.1 Postlaminectomy syndrome, not elsewhere classified
CPT/HCPCS: 62323; J1030; J1040

== ENCOUNTER → 2018-11-23 | Outpatient (CLI) | payer BC ==
--- NOTE | 2018-11-24 04:35 | PAIN ---
DATE OF SERVICE: 11/23/2018 PROGRESS NOTE FOR PAIN CLINIC DIAGNOSES: Lumbar radiculopathy with lumbar degenerative disk disease, lumbar spinal stenosis, and post-laminectomy syndrome. HISTORY OF PRESENT ILLNESS: The patient is an 83-year-old female who returns for followup status post lumbar epidural steroid injection x 1. The patient reports about 50% improvement in her low back and right lower extremity. The patient reports she has been increased her activity with greater ease and comfort, and walking. She reports she can tolerate about 20-30 minutes on her feet before she has any pain, now is much better than it was previously, still some pain in the anterior lateral aspect of the right thigh and the medial right lower leg, rates as 9 on a scale of 10, it is worst over the past week, 7 on average, 5 at least, and it is 5 today. The patient reports sometimes stabbing, sometimes dull and radiating and shooting, but otherwise she has been increasing her distance walking, doing household activities with greater ease and comfort, sleeping well at night, does not awaken her from sleep. PHYSICAL EXAMINATION: VITAL SIGNS: The patient's blood pressure 140/81, pulse 66, respirations 18, temperature 98.2 degrees Fahrenheit. Height is 5 feet 4 inches, weight is 214 pounds. GENERAL: The patient is awake, alert, oriented, appropriate, very pleasant demeanor. HEENT: Head shows normocephalic, atraumatic. Extraocular movements are intact and symmetrical. Oral cavity, mucous membranes are moist and pink. Dentition is intact. NECK: Shows anterior throat supple without palpable lymphadenopathy noted. Swallow reflex symmetrical. CHEST: Shows normal on inspection. Breath sounds clear to auscultation bilaterally. HEART: Shows S1, S2 clear. No murmurs auscultated. ABDOMEN: Soft, nontender, and nondistended. No palpable organomegaly is noted. No rebound or guarding demonstrated. BACK: Shows spine grossly in the midline. Normal appearing cervical lordotic curvature, minor increase in thoracic kyphotic curvature and flattening of lumbar lordotic curvature with well-healed surgical scar noted. Lumbar paraspinous muscle shows symmetrical on inspection and on palpation, shows some moderate tenderness diffusely bilaterally, but only diffusely without significant radiation. EXTREMITIES: The patient's lower extremities show deep tendon reflexes at 1+ in the patellar and tendo-calcaneus tendons. Motor exam is strong with 5/5 dorsiflexion and extension, equal. Peripheral pulses are 1+ posterior tibia. No peripheral edema is noted bilaterally. Options were discussed with the patient. The patient's old chart was reviewed and current medication regimen updated. Current review of systems is updated today as well. We will proceed with a second series of lumbar epidural steroid injection today with fluoroscopic guidance. Risks were again discussed including, but not limited to bleeding, infection, possibility of epidural hematoma, subsequent neurologic compromise, dural puncture, headaches, spinal cord and/or nerve damage, side effects of steroid medication and poor results regarding pain control. The patient understands and wished to proceed. The patient will return to clinic in approximately 2 weeks for followup. She was counseled on her return appointment, activity level, and side effects to be aware of. DIAGNOSES: Lumbar radiculopathy with lumbar degenerative disk disease, lumbar spinal stenosis and post-lumbar laminectomy syndrome. PROCEDURE: Lumbar epidural steroid injection, translaminar approach L5-S1 level using C-arm fluoroscopic guidance under sterile prep and drape using local anesthetic. MEDICATION INJECTED: A total of 120 mg Depo-Medrol plus 10 mL preservative-free normal saline and 2 mL of Isovue for contrast. CONDITION AT DISCHARGE: Stable. The patient tolerated the procedure well, had no complications. TRISHA HURT MD DR: RAJWINDER/herman JOB#: [id number] / [id number]
== END ==
LOC: PNCL 09:53
PROVIDERS: ATTEND Anesthesiology
DX: M51.16 Intervertebral disc disorders with radiculopathy, lumbar region (principal); M48.061 Spinal stenosis, lumbar region without neurogenic claudication; M96.1 Postlaminectomy syndrome, not elsewhere classified
CPT/HCPCS: 62323; J1030; J1040

== ENCOUNTER → 2018-12-07 | Outpatient (CLI) | payer BC ==
[~2018-12-07] MED LIST changes: -DULO30CA43 PO; +DULO30CA44 PO; +IOHEXOL 180 MG/ML 10 ML VIAL. ONE
--- NOTE | 2018-12-07 21:39 | PAIN ---
DATE OF SERVICE: 12/07/2018 PROGRESS NOTE FOR PAIN CLINIC DIAGNOSES: Lumbar radiculopathy with lumbar degenerative disk disease, lumbar spinal stenosis and post-lumbar laminectomy syndrome. HISTORY OF PRESENT ILLNESS: The patient is an 83-year-old female who returns for followup status post lumbar epidural steroid injections x 2. The patient reports about 75% improvement, still pain in the back in to the bilateral lower extremities, particularly her posterior thighs, but much improved. The patient reports no new motor or sensory deficits, no new bowel or bladder incontinence or other complaints. She has increased her activity with greater ease and comfort, been traveling with greater ease, daily activities with much greater ease as well around the house, and in the ER, the patient reports her pain at 8 on a scale of 10 at its worse, 5 on average, 5 at its least and is 5 today. The patient reported no aching pain. Does not awaken her from sleep at night. PHYSICAL EXAMINATION: VITAL SIGNS: The patient's blood pressure 126/72, pulse 80, respirations 18, temperature 99.2 degrees Fahrenheit, height is 5 feet 4 inches and weight is 208 pounds. GENERAL: The patient is awake, alert, oriented, appropriate, very pleasant demeanor. HEENT: Head is normocephalic, atraumatic. Extraocular movements are intact and symmetrical. Oral cavity: Mucous membranes are moist and pink. Dentition intact. NECK: Shows anterior throat supple without palpable lymphadenopathy noted. Swallow reflex symmetrical. CHEST: Shows normal on inspection. Breath sounds clear to auscultation bilaterally. HEART: Shows S1, S2 clear. No murmurs auscultated. ABDOMEN: Soft, nontender and nondistended. BACK: Shows spine grossly in the midline. Normal-appearing thoracic kyphosis with minor flattening of lumbar lordotic curvature with a well-healed surgical scar noted. Lumbar paraspinous muscle shows symmetrical on inspection. Palpation shows some moderate tenderness bilaterally diffusely without radiation. EXTREMITIES: The patient's lower extremities show deep tendon reflexes at 1+ in the patella and tendo-calcaneus tendons are equal. Motor exam is strong with 5/5 dorsiflexion, extension and symmetrical. Peripheral pulses are 1+ posterior tibial. No peripheral edema noted bilaterally. Options were discussed with the patient. The patient's old chart was reviewed as well as her current medication regimen updated. Current review of systems updated today as well. We will proceed with a third in a series of lumbar epidural steroid injection today under fluoroscopic guidance. Risks were again discussed including but not limited to bleeding, infection, possibility of epidural hematomas, subsequent neurological compromise, dural puncture, headaches, spinal cord and/or nerve damage, side effects of steroid medication and poor results regarding pain control. The patient understands and wishes to proceed. The patient will return to clinic in approximately 2 weeks for followup, was counseled as to return appointment, activity level and side effects to be aware of. DIAGNOSES: Lumbar radiculopathy with lumbar degenerative disk disease, lumbar spinal stenosis, post-lumbar laminectomy syndrome. PROCEDURE: Lumbar epidural steroid injection, translaminar approach, L5-S1 level using C-arm fluoroscopic guidance under sterile prep and drape using a local anesthetic. MEDICATIONS: A total of 120 mg of Depo-Medrol plus 10 mL of preservative-free normal saline and 2 mL of contrast. CONDITION AT DISCHARGE: Stable. The patient tolerated the procedure well, had no complications. TRISHA HURT MD DR: RAJWINDER/herman JOB#: [id number] / [id number]
== END ==
LOC: PNCL 09:24
PROVIDERS: ATTEND Anesthesiology
DX: M51.16 Intervertebral disc disorders with radiculopathy, lumbar region (principal); M48.061 Spinal stenosis, lumbar region without neurogenic claudication; M96.1 Postlaminectomy syndrome, not elsewhere classified
CPT/HCPCS: 62323; J1030; J1040; Q9965

== ENCOUNTER → 2019-04-13 | Outpatient (CLI) | payer BC ==
[2019-01-06 02:00] VITALS: BP 90/49
[~2019-04-13] MED LIST changes: -IOHEXOL 180 MG/ML 10 ML VIAL. ONE; +OXYB5TAB10 PO; -OXYB5TAB7 PO; -methylPREDNISolone ACETATE 40 MG/ML VIAL. ONE; -methylPREDNISolone ACETATE 80 MG/ML VIAL. ONE
--- NOTE | 2019-04-14 17:30 | RAD ---
DATE: 04/13/2019 EXAM: MAMMO MEHRDAD SCREENING BILATERAL HISTORY: Routine screening COMPARISON: 04/09/2015, 04/09/2016, 04/10/2017, 04/12/2018 mammographic exams This study was interpreted with the benefit of Computerized Aided Detection (CAD). Breast Density: FATTY The breast parenchyma is primarily fatty replaced. Breast parenchyma level density A. FINDINGS: Benign calcifications are present. No masses or distortion. No suspicious calcification clusters. IMPRESSION: No suspicious findings. BI-RADS CATEGORY: 1 NEGATIVE RECOMMENDED FOLLOW-UP: 12M 12 MONTH FOLLOW-UP PQRS compliance statement: Patient information was entered into a reminder system with a target due date for the next mammogram. Mammography is a sensitive method for finding small breast cancers, but it does not detect them all and is not a substitute for careful clinical examination. A negative mammogram does not negate a clinically suspicious finding and should not result in delay in biopsying a clinically suspicious abnormality. "Our facility is accredited by the [employer] Mammography Program."
== END | disposition home or self-care (01) ==
LOC: MAMMO 08:20
PROVIDERS: ATTEND Family Medicine
DX: Z12.31 Encounter for screening mammogram for malignant neoplasm of breast (principal); N64.89 Other specified disorders of breast
CPT/HCPCS: 77063; 77067

== ENCOUNTER → 2020-02-10 | Outpatient (CLI) | payer BC ==
[2019-01-06 02:00] VITALS: BP 90/49
[~2020-02-10] MED LIST changes: -ALEN70TA6 PO; +ALEN70TA60 PO; -LEVO112T4 PO; +LEVO112T49 PO
--- NOTE | 2020-02-10 11:16 | KCIC ---
EXAMINATION: Magnetic resonance imaging (MRI) of the lumbar spine without contrast 02/10/2020 9:30 AM HISTORY: Spinal stenosis. No new onset of sharp right leg pain, especially when standing. TECHNIQUE: Multiplanar multi-weighted MRI of the lumbar spine was performed without intravenous contrast using the standard lumbar spine protocol. Contrast information: None administered. COMPARISON: None available. FINDINGS: There is 1 mm retrolisthesis of T12 on L1. 2 mm retrolisthesis of L2 on L3 and L3 on L4. There is 4 mm anterolisthesis of L5 on S1. Vertebral body heights are maintained. Mild Modic type I endplate degenerative changes are identified at L3-L4. Inferior endplate Schmorl's node is identified at L3 and L4 without significant height loss. Osseous hemangioma is identified at L1. Moderate to severe anterior marginal osteophytosis noted throughout the thoracolumbar spine is visualized. Conus medullaris remains at L1. Distal spinal cord signal intensity is normal on all sequences. There is S-shaped scoliosis of the thoracolumbar spine with dextro convex curvature at T12-L1 and levoconvex curvature at L3-L4. There is moderate disc height loss at T12-L1, L1-L2, L2-3 mild to L4 and L4-L5. Mild disc height loss L5-S1. Disc desiccation is identified at all levels of lumbar spine. Abdominal aorta is normal in caliber. Simple appearing left renal cysts are identified measuring up to 1.4 cm. Visualized portions of the sacrum appear intact. T11-T12: There is mild disc bulge asymmetric to the left. Mild left facet arthropathy. Moderate left neuroforaminal stenosis. Mild spinal canal stenosis, exacerbated by ligamentum flavum infolding. T12-L1: There is a mild disc bulge asymmetric to the left with left far lateral disc protrusion. Mild facet arthropathy, left greater than right. Moderate left and mild right neuroforaminal stenosis. Mild spinal canal stenosis. No deformity of the conus visualized. L1-L2: There is a moderate disc bulge. There is a left foraminal disc protrusion. Moderate to severe left and moderate right neuroforaminal stenosis. Mild spinal canal stenosis. There is left lateral recess stenosis. L2-L3: There is a moderate circumferential disc bulge. Right foraminal disc protrusion is identified. Moderate facet arthropathy ligamentum flavum infolding. Moderate to severe bilateral neuroforaminal stenosis. Mild spinal canal stenosis. There is right lateral recess stenosis. L3-L4: There is a moderate circumferential disc bulge with right far lateral disc protrusion. There is moderate to severe facet arthropathy ligamentum flavum infolding. There is severe right and moderate left neuroforaminal stenosis. Severe spinal canal stenosis. Right lateral recess stenosis. Findings appear progressed at L3-L4. L4-L5: There is a moderate circumferential disc bulge with left far lateral disc protrusion. There is severe facet arthropathy. Partial laminectomy changes are identified. Severe left and moderate right neural foraminal stenosis. There is left lateral recess stenosis. There is an anteriorly projecting synovial cyst at the L4-L5 vertebral level measuring 7 x 6 mm (series 6, image 9. This results in left lateral recess stenosis. There is moderate spinal canal stenosis. Findings are exacerbated by epidural lipomatosis. Findings appear marginally improved compared to prior examination from 06/06/2016. L5-S1: There is a circumferential disc bulge. Severe facet arthropathy. Severe left and mild right neuroforaminal stenosis. There is narrowing the thecal sac secondary to epidural lipomatosis. IMPRESSION: Moderate to advanced changes of lumbar spine are present, described in detail above with interval progression of degenerative disc disease at L3-L4 compared to prior examination. Partial laminectomy changes are identified at L4-L5 with improved mass effect on the thecal sac. There is a synovial cyst at the left L4-L5 vertebral level projecting anteromedially resulting in left lateral recess stenosis. Electronically signed by: Pina Scott MD (02/10/2020 11:13 AM) [facility]
== END ==
LOC: KCIC MRI 09:08
PROVIDERS: ATTEND Family Medicine
DX: M47.816 Spondylosis without myelopathy or radiculopathy, lumbar region (principal); M43.17 Spondylolisthesis, lumbosacral region; M48.07 Spinal stenosis, lumbosacral region; M51.46 Schmorl's nodes, lumbar region; M25.78 Osteophyte, vertebrae; N28.1 Cyst of kidney, acquired; M51.36 Other intervertebral disc degeneration, lumbar region; E88.2 Lipomatosis, not elsewhere classified
CPT/HCPCS: 72148

== ENCOUNTER → 2020-02-21 | Outpatient (CLI) | payer BC ==
[2019-01-06 02:00] VITALS: BP 90/49
[~2020-02-21] MED LIST changes: +IOHEXOL 180 MG/ML 10 ML VIAL. ONE; +methylPREDNISolone ACETATE 40 MG/ML VIAL. ONE; +methylPREDNISolone ACETATE 80 MG/ML VIAL. ONE
--- NOTE | 2020-02-21 08:56 | PDOC ---
Progress Note - Pain Clinic Date of Service: DOS: DATE: 02/21/20 TIME: 08:49 Diagnosis: Dx: Lumbar radiculopathy with lumbar degenerative disc disease lumbar spinal stenosis and post lumbar laminectomy syndrome History or Present Illness: HPI: 84-year-old female returns follow-up status post lumbar epidural steroid injections x3 most recently seen December 07, 2018. Patient reports about 80% improvement in her low back and right lower extremity pain after that time. Patient reports pain is returning now over the past 4 to 5 months in the low back and right lower extremity radiating the posterior lateral thigh lateral anterior thigh anterior medial thigh posterior thigh and lower leg as well as across the low back and mostly on the right side. Patient reports is worse with walking standing changing positions better with sitting or laying down but does awaken her from sleep occasionally about every 5-6 hours patient reports the pain is a 10 on scale 10 is worse over the past week 9 on average 6 at its least and is a 6 today. Patient describes pain as stabbing and shooting in the low back radiating and stabbing in the right leg. Patient ports on and off with intensity with activity better with sitting or laying down worse with standing and walking. She did have a new MRI scan which was dated February 10, 2020 showing progression of the L3-4 space with degenerative disc disease as well as partial laminectomy changes at L4-5 synovial cyst L4-5 on the left. Patient reports no loss of motor function no bowel or bladder changes in incontinence Physical Exam: VS: Blood pressure is 102/74 pulse 45 respirations 18 temperature is 96.4 F height is 5 foot 4 inches weight is 201 pounds PE: PHYSICAL EXAMINATION: GENERAL: The patient is awake, alert, oriented, appropriate, very pleasant demeanor HEENT: Shows normocephalic, atraumatic. Extraocular movements are intact and symmetrical. Oral cavity: Mucous membranes moist and pink. NECK: Shows anterior throat supple without palpable lymphadenopathy noted. Swallow reflex symmetrical. CHEST: Shows normal on inspection. Breath sounds are clear bilaterally, no r ales rhonchi wheezes auscultated. HEART: Shows S1, S2 clear. No murmurs auscultated. ABDOMEN: Soft, nontender, nondistended, obese. No palpable organomegaly is noted. No rebound or guarding demonstrated. BACK: Shows spine grossly in the midline. Normal-appearing cervical lordotic curvature. There is slightly increased thoracic kyphosis, some minor flattening of the lumbar lordotic curvature. Lumbar paraspinous muscles show symmetrical on inspection, on palpation shows some moderate tenderness diffusely throughout the upper, middle and lower distribution of the paraspinous muscles bilaterally, but without specific trigger points, without radiation of pain. The patient has good rotational motion of the lumbar spine, both laterally as well as extension and flexion without significant difficulty. No tenderness over the spinous processes, sacrum or sacroiliac regions. EXTREMITIES: Lower extremities show deep tendon reflexes 1+ in the patellar and tendo calcaneus tendons. Motor exam is 5 on a scale of 5 with right dorsiflexion, extension, quadriceps and hamstring flexion and 5/5 on the left. Peripheral pulses are 1+ posterior tibial. No peripheral edema is noted bilaterally. Lower extremities are warm and dry to touch, equal in color and appearance. The patient is able to stand, has difficulty rising from a seated position and uses the arms of the chair to help also is using a walker to ambulate and has a slight shuffling gait does not appear to favor the right or left lower extremity significantly on a short walk in the office today. SKIN: Shows warm and dry, good turgor. No edema. No sores, rashes or bruising throughout. Procedure: Procedure: Options were discussed with the patient. Patient's old chart was reviewed as her current medication regimen updated current review of systems updated today as well. We will proceed with a lumbar epidural steroid injection today with fluoroscopic guidance. Risks were discussed including but not limited to: Bleeding, infection, possibility of epidural hematoma and subsequent neurological compromise, dural puncture, headaches, spinal cord and/or nerve damage, side effects of steroid medication, and poor results regarding pain control. Patient understands wished to proceed. Patient will return to clinic in approximate 2 weeks for follow-up was counseled as to return appointment activity level and side effects to be aware of. Medication Injected: Med Injected: Procedure is lumbar epidural steroid injection under local anesthetic using sterile prep and drape at the L5-S1 level using C-arm fluoroscopic guidance in both AP and lateral views medications injected is 120 mg Depo-Medrol + 10 mL preservative-free normal saline and 2 mL contrast- condition at discharge is stable patient tolerated procedure well had no complications. Condition at Discharge: Condition at Discharge: Condition at discharge is stable patient tolerated the procedure well and had no complications. TRISHA HURT MD Feb 21, 2020 08:56
== END ==
LOC: PNCL 08:08
PROVIDERS: ATTEND Anesthesiology
DX: M51.16 Intervertebral disc disorders with radiculopathy, lumbar region (principal); M48.061 Spinal stenosis, lumbar region without neurogenic claudication; M71.38 Other bursal cyst, other site; I10 Essential (primary) hypertension; E03.9 Hypothyroidism, unspecified; E11.9 Type 2 diabetes mellitus without complications; Z79.899 Other long term (current) drug therapy; Z83.3 Family history of diabetes mellitus; Z82.49 Family history of ischemic heart disease and other diseases of the circulatory system; Z79.84 Long term (current) use of oral hypoglycemic drugs
CPT/HCPCS: 62323; J1030; J1040; Q9965

== ENCOUNTER → 2020-03-06 | Outpatient (CLI) | payer BC ==
[2019-01-06 02:00] VITALS: BP 90/49
--- NOTE | 2020-03-06 08:51 | PDOC ---
Progress Note - Pain Clinic Date of Service: DOS: DATE: 03/06/20 TIME: 08:46 Diagnosis: Dx: Lumbar radiculopathy with lumbar degenerative disc disease lumbar spinal stenosis and post lumbar laminectomy syndrome History or Present Illness: HPI: 84-year-old female returns follow-up status post lumbar epidurals injection x1 on February 21, 2020 patient reports she did well with this with about a 50% i mprovement with the pain returning down the low back and right lower extremity posterior gluteus posterior thigh posterior calf worse with walking standing changing positions patient reports initially doing much better with distance walking doing household activities, and traveling greater ease and comfort. Now the pain is returning low back right lower extremity as noted patient describes pain is radiating sharp at times in the back and radiating constant in the leg. Patient ports her pain is a 9 on scale 10 is worse over the past week 8 on average and a 8 at its least and is an 8 today. Patient reorts no new motor or sensory deficits or other complaints. Physical Exam: VS: Blood pressure is 133/70 pulse 57 respirations 18 temperature 98.1 F height is 5 feet 4 inches weight is 200 pounds PE: PHYSICAL EXAMINATION: GENERAL: The patient is awake, alert, oriented, appropriate, very pleasant demeanor HEENT: Shows normocephalic, atraumatic. Extraocular movements are intact and symmetrical. NECK: Shows anterior throat supple without palpable lymphadenopathy noted. CHEST: Shows normal on inspection. Breath sounds are clear bilaterally. HEART: Shows S1, S2 clear. No murmurs auscultated. ABDOMEN: Soft, nontender, nondistended, obese with well-healed surgical scar at the umbilicus. No palpable organomegaly is noted. No rebound or guarding demonstrated. BACK: Shows spine grossly in the midline. Normal-appearing cervical lordotic curvature. There is slightly increased thoracic kyphosis, some minor flattening of the lumbar lordotic curvature. Lumbar paraspinous muscles show symmetrical on inspection, on palpation shows some moderate tenderness diffusely throughout the upper, middle and lower distribution of the paraspinous without specific trigger points, without radiation of pain. The patient has good rotational motion of the lumbar spine, both laterally as well as extension and flexion without significant difficulty. No tenderness over the spinous processes, sacrum or sacroiliac regions. EXTREMITIES: Lower extremities show deep tendon reflexes 1+ in the patellar and tendo calcaneus tendons. Motor exam is 5 on a scale of 5 with right dorsiflexion, extension, quadriceps and hamstring flexion and 5/5 on the left. Peripheral pulses are 1+ posterior tibial. No peripheral edema is noted bilaterally. SKIN: Shows warm and dry, good turgor. No edema. No sores, rashes or bruising throughout. Procedure: Procedure: Options were discussed with the patient. Patient chart was reviewed as her current medication regimen updated current review of systems updated today as well. We will proceed with a second in the series lumbar epidural steroid injection today with fluoroscopic guidance. Risks were discussed including but not limited to: Bleeding, infection, possibility of epidural hematoma and subsequent neurological compromise, dural puncture, headaches, spinal cord and/or nerve damage, side effects of steroid medication, and poor results regarding pain control. Patient understands wished to proceed. Patient will return to clinic in approximately 2 weeks for follow-up was counseled as return appointment activity level and side effects to be aware of. Medication Injected: Med Injected: Procedure is lumbar epidural steroid injection under local anesthetic using sterile prep and drape at the L5-S1 level using C-arm fluoroscopic guidance in both AP and lateral views medications injected is reviewed and 120 mg Depo- Medrol + 10 mL preservative-free normal saline and 2 mL contrast- condition at discharge is stable patient tolerated procedure well had no complications. Condition at Discharge: Condition at Discharge: Condition at discharge is stable, patient on the procedure well and had no complications. TRISHA HURT MD Mar 06, 2020 08:51
== END | disposition home or self-care (01) ==
LOC: PNCL 07:53
PROVIDERS: ATTEND Anesthesiology
DX: M51.16 Intervertebral disc disorders with radiculopathy, lumbar region (principal); M48.061 Spinal stenosis, lumbar region without neurogenic claudication; M96.1 Postlaminectomy syndrome, not elsewhere classified; I10 Essential (primary) hypertension; E78.00 Pure hypercholesterolemia, unspecified; E66.9 Obesity, unspecified; M19.90 Unspecified osteoarthritis, unspecified site; E03.9 Hypothyroidism, unspecified; E11.42 Type 2 diabetes mellitus with diabetic polyneuropathy; Z79.899 Other long term (current) drug therapy; Z79.82 Long term (current) use of aspirin; Z79.84 Long term (current) use of oral hypoglycemic drugs; Z90.49 Acquired absence of other specified parts of digestive tract; Z98.890 Other specified postprocedural states; Z72.89 Other problems related to lifestyle; Z82.49 Family history of ischemic heart disease and other diseases of the circulatory system; Z83.3 Family history of diabetes mellitus; Z91.041 Radiographic dye allergy status; Z88.8 Allergy status to other drugs, medicaments and biological substances
CPT/HCPCS: 62323; J1030; J1040; Q9965

== ENCOUNTER → 2020-04-16 | Outpatient (CLI) | payer BC ==
[2019-01-06 02:00] VITALS: BP 90/49
[~2020-04-16] MED LIST changes: -IOHEXOL 180 MG/ML 10 ML VIAL. ONE; -methylPREDNISolone ACETATE 40 MG/ML VIAL. ONE; -methylPREDNISolone ACETATE 80 MG/ML VIAL. ONE
--- NOTE | 2020-04-17 15:21 | RAD ---
DATE: 04/16/2020 7:49 AM EXAM: MAMMO MEHRDAD SCREENING BILATERAL HISTORY: Screening COMPARISON: 04/13/2019 Bilateral CC and MLO views of the breasts were performed. Bilateral breast tomosynthesis was performed in CC and MLO projections. This study was interpreted with the benefit of Computerized Aided Detection (CAD). FINDINGS: Breast Density: FATTY The Breast Parenchyma is primarily fatty replaced. Breast parenchyma level density A. No suspicious masses, microcalcifications or architectural distortion is present to suggest malignancy in either breast. The visualized axillae are unremarkable. IMPRESSION: No mammographic evidence of malignancy. BI-RADS CATEGORY: 1 NEGATIVE RECOMMENDED FOLLOW-UP: 12M 12 MONTH FOLLOW-UP Annual screening mammography is recommended, unless clinically indicated sooner based on symptoms or change in physical exam. PQRS compliance statement: Patient information was entered into a reminder system with a target due date for the next mammogram. Mammography is a sensitive method for finding small breast cancers, but it does not detect them all and is not a substitute for careful clinical examination. A negative mammogram does not negate a clinically suspicious finding and should not result in delay in biopsying a clinically suspicious abnormality. "Our facility is accredited by the [employer] Mammography Program."
== END ==
LOC: MAMMO 07:50
PROVIDERS: ATTEND Family Medicine
DX: Z12.31 Encounter for screening mammogram for malignant neoplasm of breast (principal)
CPT/HCPCS: 77063; 77067

== ENCOUNTER → 2021-04-17 | Outpatient (CLI) | payer BC ==
[2019-01-06 02:00] VITALS: BP 90/49
[~2021-04-17] MED LIST changes: -ALEN70TA60 PO; +ALEN70TA71 PO; +METH-562 PO; -METH750T2 PO; +MIRA25TA PO; -MIRA50TA PO
--- NOTE | 2021-04-17 11:31 | RAD ---
Bilateral digital screening 2-D and 3-D (digital breast tomosynthesis) mammogram: Reason for examination: Routine screening. Comparison: Mammograms from 04/16/2020 and 04/13/2019. Interpretation was made with the benefit of CAD. FINDINGS: Breast density: Category A. Breast tissue is almost entirely fatty. No suspicious breast mass, malignant appearing calcifications, or architectural distortion is seen. IMPRESSION: No evidence of malignancy. Assessment: BI-RADS 1. Negative. Recommendation: Routine screening mammograms. The patient will receive a letter with the results in the mail. Patient information will be entered i nto the mammography reminder system with a target recall date for the next mammogram. A reminder miley er will be generated. Electronically signed by: Geni Luis MD (04/17/2021 11:28 AM) [id number]
== END ==
LOC: MAMMO 07:28
PROVIDERS: ATTEND Family Medicine
DX: Z12.31 Encounter for screening mammogram for malignant neoplasm of breast (principal)
CPT/HCPCS: 77063; 77067

== ENCOUNTER → 2021-09-02 | Outpatient (CLI) | payer BC ==
[2019-01-06 02:00] VITALS: BP 90/49
--- NOTE | 2021-09-02 16:55 | KCIC ---
Lumbar spine 3 views: Reason for examination: Spinal stenosis with chronic low back pain. History of fall 4 months ago. Comparison is made to previous study dated 10/04/2018. There is a mild rotatory scoliosis present while standing. The vertebral bodies of the thoracic spine are normally aligned anteriorly and posteriorly. No acute fracture or subluxation is seen. There jennifer ear to be changes consistent with laminectomy at the L4 level. There are hypertrophic degenerative ch anges evident from T12 through L5. There continues to be degenerative disc disease present which is s evere at the L3-4 and L4-5 levels. No acute abnormality seen at the sacrum. IMPRESSION: Postop change from laminectomy at the L4 level. Progressive degenerative changes with severe degenerative disc space at the L3-4 and L4-5 disc levels . No acute bony abnormality in the lumbar spine. Electronically signed by: Leanna Allison MD (09/02/2021 4:53 PM) [email or web address]
== END ==
LOC: KCIC 13:50
PROVIDERS: ATTEND Family Medicine
DX: M47.815 Spondylosis without myelopathy or radiculopathy, thoracolumbar region (principal); M51.36 Other intervertebral disc degeneration, lumbar region; M48.061 Spinal stenosis, lumbar region without neurogenic claudication; Z98.890 Other specified postprocedural states
CPT/HCPCS: 72100